=== PATIENT | male | born 1980 | race Caucasian/White ===

== ENCOUNTER → 2023-08-15 02:34 | Outpatient (CLI) | payer OTHER, SELFPAY ==
--- NOTE | 2023-08-15 08:30 | DI.US_ITS ---
APPROVED REPORT EXAM: Comprehensive 2D, Doppler, and color-flow Echocardiogram Patient Location: Out-Patient Computer [employer] Specialist Instructor: Rosa Park RDCS (AE) Indications: Tachycardia, Assess valvular veg and potential for reduced EF Other Information Study Quality: Adequate Conclusion Normal left ventricular wall thickness and chamber size.EF is 60-65%. Wall motion is normal Normal right ventricular size and function Both atria are normal in size. There is no structural or hemodynamically significant valvular disease Estimated right ventricular systolic pressure is 24 mmHg Wall motion Left Ventricle The left ventricle is normal size. The left ventricular systolic function is normal. The left ventric ular ejection fraction is within the normal range. There is normal left ventricular wall thickness. T here is normal LV segmental wall motion. There is no ventricular septal defect visualized. LVEF is 60 -65%. Right Ventricle The right ventricle is normal size. The right ventricular systolic function is normal. Atria The left atrium size is normal. The right atrium size is normal. The interatrial septum is intact wit h no evidence for an atrial septal defect. Aortic Valve The aortic valve is normal in structure. Aortic valve is trileaflet. There is no aortic valvular sten osis. No aortic regurgitation is present. There is no aortic valvular vegetation. Mitral Valve The mitral valve is normal in structure. No evidence of mitral valve stenosis. Trace to mild mitral r egurgitation. There is no evidence of mitral valve vegetations. Mild mitral valve prolapse. Tricuspid Valve The tricuspid valve is normal in structure. There is no tricuspid valve stenosis. Trace tricuspid reg urgitation. The RVSP is 24.0 mmHg. There is no tricuspid valve vegetations. Pulmonic Valve The pulmonary valve is normal in structure. There is no pulmonic valvular stenosis. Trace pulmonic re gurgitation. There is no pulmonic valve vegetations. Great Vessels The aortic root is normal in size. The ascending aorta is normal in size. Aortic arch is normal in ca liber. IVC is normal in size and collapses >50% with inspiration. Pericardium There is no pericardial effusion. 2D Dimensions IVSD d PLAX 0.89 cm M: 0.6-1.2 Ao Root d 3.74 cm M: 3.1 - 3.7 LVPW d PLAX 0.95 cm M: 0.6 - 1.2 Ao Asc Diam d 3.32 cm M: 2.6 - 3.4 LVID d PLAX 5.22 cm M: 4.2 - 5.8 LVDs 3.62 cm M: 2.5 - 4.0 LV EF Teichholz 57.8 % FS 30.69 % LV EDV (Teich) 130.9 mL LV ESV (Teich) 55.2 mL M-Mode TAPSE 2.67 cm (M/F) >1.7 Auto EF LV EDV A4C 165.7 mL LV EDV A2C 143.4 mL LV EDV BP 156.1 mL LV ESV A4C 70.9 mL LV ESV A2C 64.3 mL LV ESV BP 68.1 mL LVEF(%) A4C 57.2 % LVEF(%) A2C 55.2 % LVEF(%) BP 56.4 % LV SV A4C 94.8 ml LV SV A2C 79.1 ml LV SV BP 88.0 ml LV CO A4C 8.9 L/min LV CO A2C 7.6 L/min LV CO BP 8.3 L/min HR A4C 94.24 BPM HR A2C 96.00 BPM LV EDV Index (BP) LA Volume LA Length A4C 4.9 cm LA Length A2C 4.5 cm LA Area A4C s 17.52 cm2 LA Area A2C s 15.62 cm2 LA Vol A4C A-L 53.56 mL LA Vol A2C A-L 45.83 mL LA Vol Biplane A-L 51.4 mL LA Vol/BSA A4C A-L LA Vol/BSA A2C A-L LA Vol/BSA BP A-L 26.4 mL/m2 LA Vol A4C MOD 46.7 mL LA Vol A2C MOD 44.3 mL LA Vol BP MOD 46.7 mL RA Volume RA Area A4C 9.9 cm2 RA ESV A4C (A-L) 19.8mL RA Vol/BSA A4C A-L RA Length A4C 4.2 cm RA ESV A4C (MOD) 19.0mL LV Diastology MV E' lateral 0.109 (>0.1 m/s) MV E Vmax 0.60 (0.4-1.3 m/s) MV E/E' LAT 5.49 (<14) MV A Vmax 0.70 (0.4-1.3 m/s) E/A Ratio 0.9 Aortic Valve AoV Vmax 1.12 m/s LVOT Vmax 1.00 m/s AoV Peak Grad 5.1 mmHg LVOT Peak Grad 4.0 mmHg AoV Area (Vmax) 2.85 cm2 LVOT VTI 0.190 m AoV VTI 0.201 m LVOT Mean Grad 2.1 mmHg AoV Mean Alejandro. 0.85 m/s LVOT SV 60.71 mL AoV Mean Grad 3.2 mmHg LVOT Diam s 2.00 cm AoV Area (VTI) 3.02 cm2 Velocity Ratio 0.89 Mitral Valve MV DT 205 (160-240 msec) MV Vmax TIPS 0.70 m/s MV Mean Grad 1.0 (<2mmHg) MV VTI 0.131 m Pulmonary Valve PV Vmax 1.32 (0.5-1.5 m/s) RVOT Vmax 0.85 m/s PV Peak Grad 7.0 mmHg RVOT Peak Gr. 2.9 mmHg PV Mean Alejandro 1.02 m/s RVOT VTI 0.137 m PV Mean Grad 4.4 mmHg RVOT Mean Gr. 1.7 mmHg Tricuspid Valve RA Pressure 3.00 mmHg TR Vmax 2.29 m/s TV S' 0.18 m/s TR Peak Grad 20.9 mmHg RVSP (TR) 24.0 mmHg
== END ==
PROVIDERS: Visit Provider Nurse Practitioner Adult Health
DX: R00.0 Tachycardia, unspecified (principal)
CPT/HCPCS: 93306